=== PATIENT | female | born 1990 | race Caucasian/White ===

== ENCOUNTER 2019-09-29 09:30 | Emergency (ER) | payer SELFPAY ==
[2019-09-29 09:35] VITALS: BMI 26.5
[2019-09-29 09:38] VITALS: BP 114/80; PULSE 80; RESP 16; TEMP 36.8; O2SAT 96
[2019-09-29 09:49] VITALS: PULSE 78
--- NOTE | 2019-09-29 10:01 | W.ED.EXTPRO ---
HPI - Extremity Problem General: Chief complaint: Extremity Injury, Upper Stated complaint: RIGHT SHOULDER PAIN Time Seen by Provider: 09/29/19 09:45 History of Present Illness: HPI Narrative: Patient complains about right shoulder pain after falling 3 reports last night and her right arm was extended and it pulled on that right shoulder. Right shoulder pain with trying to raise arm. MD Complaint: joint pain Onset (ago): hour(s) Pain Consistency: other Location: right and upper extremity Severity scale (1-10): 5 Quality: aching Radiation: none Relieving factors: immobilization Exacerbating factors: other (Trying to raise arm) Associated symptoms: Reports no associated symptoms; Deny chest pain, fever(s) or rash Review of Systems Const: Denies: fever(s), chills or body aches Eyes: Denies: change in vision or blurry vision ENMT: Denies: throat pain or nasal congestion Card: Denies: chest pain or dyspnea on exertion Resp: Denies: dyspnea, productive cough or non-productive cough GI: Denies: abdominal pain, nausea or vomiting Musc: Reports: joint pain (Right shoulder); Denies: extremity pain Skin/Breast: Denies: rash Neuro: Denies: headache(s) Psych: Denies: anxiety or depression Ever/Lymph: Denies: easy bruising Physical Exam Const: COMMON NORMALS: no acute distress, average body habitus and patient oriented x3 HENMT: COMMON NORMALS: normocephalic HEAD & SCALP: normal to inspection and normocephalic FACE & SINUS: normal facial exam Eye: COMMON NORMALS: conjunctivae normal GENERAL EYE: appearance normal, both eyes and all related structures CONJUNCTIVA: Yes conjunctivae normal Neck/C-Spine: COMMON NORMALS: no JVD Chest: COMMONS NORMALS: normal inspection of the chest Resp: COMMON NORMALS: normal respiratory effort and clear to auscultation bilaterally AUSCULTATION: clear to auscultation bilaterally Cardio: COMMON NORMALS: no JVD, regular rate and regular rhythm RATE: regular rate RHYTHM: regular rhythm GI: COMMON NORMALS: Normal to inspection, nondistended, normoactive bowel sounds present Extremity: COMMON NORMALS: normal to inspection RIGHT UPPER EXTREMITY: Yes shoulder joint (Positive Apley scratch test. Negative can test. Resistive arm test positive) Neuro: COMMON NORMALS: patient oriented x3 Course Vital Signs: Vital signs: Vital Signs Temperature 98.2 F 09/29/19 09:38 Pulse Rate 78 09/29/19 09:49 Respiratory Rate 16 09/29/19 09:38 Blood Pressure 114/80 09/29/19 09:38 Pulse Oximetry 96 09/29/19 09:38 MDM - Extremity (Nontraumatic) MDM Narrative: Medical decision making narrative: Patient presented with right shoulder pain does have range of motion when held by me but does have pain with test as outlined in the physical exam. Discussed shoulder sprain versus rotator cuff tear or strain. Do not believe there is any dislocation because she does have range of motion no swelling. Discharge Plan Discharge Patient Disposition: Home Clinical Impression: Sprain of right shoulder Qualifiers: Encounter type: initial encounter Shoulder sprain type: unspecified sprain Qualified Code(s): S43.401A - Unspecified sprain of right shoulder joint, initial encounter Condition: Stable Prescriptions: New diclofenac potassium 50 mg tablet 50 mg PO BID PRN (Reason: pain) Qty: 14 RF: 0 Medrol (Ivan) 4 mg tablets,dose pack See Rx Instructions .ROUTE .COMPLEX Qty: 21 RF: 0 Discontinued ibuprofen 800 mg Tablet 800 mg PO Q6H PRN (Reason: Pain (Scale Score 4-6)) RF: 0 Discharge Orders: Discharge Order (Routine); Ordered 09/29/19 Ordered By: Forrest Godoy Referrals: Jada Cano APN [Primary Care Provider] - Discharge Diet: Usual diet Discharge Activity: Increase activity as tolerated Patient Instructions: Rotator Cuff Injury (ED) Activity Restrictions/Additional Instructions: Follow-up with medical provider as directed. Take medications as prescribed. Return to the ER or your medical provider if condition worsens. Please read and understand discharge instructions. If any questions ask please. Do shoulder exercises that you are instructed on. Ice to the area. Wear sling as needed. Follow-up with [facility] for possible MRI if no significant provement to 3 weeks. Coding Level of Care Code ED Resident Care Manager Rn for Ashley Fwd Exam Comprehensive
[2019-09-29 10:08] VITALS: BP 120/89; PULSE 80; RESP 16; TEMP 36.6; O2SAT 99
== END 2019-09-29 10:11 | disposition home or self-care (01) ==
LOC: ER 10:17
PROVIDERS: Emergency Provider Nurse Practitioner Family; Family Provider Nurse Practitioner Family; PCP Nurse Practitioner Family
DX: S43.401A Unspecified sprain of right shoulder joint, initial encounter (principal); W19.XXXA Unspecified fall, initial encounter
CPT/HCPCS: 12345; 99282

== ENCOUNTER → 2020-04-07 14:13 | Outpatient (BNVA) | payer MEDICAID, SELFPAY | PROVIDERS: Family Provider Nurse Practitioner Family; PCP Nurse Practitioner Family; Visit Provider Nurse Practitioner Women's Health | DX: Z12.4 Encounter for screening for malignant neoplasm of cervix (principal) | CPT/HCPCS: 88175 ==

== ENCOUNTER → 2020-08-15 11:24 | Outpatient (BNVA) | payer MEDICAID, SELFPAY | PROVIDERS: Family Provider Nurse Practitioner Family; PCP Nurse Practitioner Family; Visit Provider Registered Nurse Neonatal Intensive Care | DX: B37.2 Candidiasis of skin and nail (principal); Z20.2 Contact with and (suspected) exposure to infections with a predominantly sexual mode of transmission; R05 Cough | CPT/HCPCS: 81000; 87491; 87591; 87661 ==

== ENCOUNTER 2021-10-21 09:22 | Emergency (ER) | payer BC, MEDICAID, SELFPAY ==
[2021-10-21 10:26] VITALS: BP 159/105; PULSE 86; RESP 16; TEMP 37; O2SAT 98; BMI 26.5
--- NOTE | 2021-10-21 10:26 | W.ED.EAR ---
HPI - Ear Problem General: Chief complaint: Ear Stated complaint: right ear pain Time Seen by Provider: 10/21/21 09:40 Source: patient Mode of arrival: ambulatory Limitations: no limitations History of Present Illness: 31-year-old female presents to the ER today for right ear pain x5 days. Patient reports she went floating early last week and by Friday her right ear started bothering her. Patient was seen at an outpatient clinic and given amoxicillin and a steroid eardrop. Patient reports the pain has continued to worsen and she is not sleeping. Patient reports no sleep for the last 3 nights. She reports she is taking 1000 mg of ibuprofen 4 times a day. Patient rates pain a 10+ out of 10. Patient reports the pain goes down her neck and into her throat. She does report some discharge from the ear also. Review of Systems General: Reports: 10 or more systems reviewed and unremarkable except in HPI and below PFSH ED PFSH: Medical History History of anxiety History of depression No pertinent past medical history neghx: htn,dm,thyroid,dvt/pe PCP: Malu Cano Surgical History No history of previous surgery Family History Mother Hypertension Grandmother Hypertension Maternal Ovarian cancer Maternal-- dx age unknown Paternal--dx age unknown Diabetes Maternal Family/Other Diabetes Maternal Aunt Breast cancer Maternal Great Grandmother--dx age late 30's Denies family history of Colon cancer Heart disease Hypercholesteremia Uterine cancer Thyroid disease Stroke Social History Smoking and tobacco status: current every day smoker Physical Exam Const: COMMON NORMALS: average body habitus, patient oriented x3, no limitations, healthy appearing, alert and well nourished; apparent distress (pt tearful and in moderate distress) HENMT: COMMON NORMALS: normocephalic, atraumatic, hearing grossly normal bilaterally, TM's normal bilaterally, Normal nasal mucous membranes and turbinates present, moist oral mucous membranes, oropharynx normal and dentition normal HEAD & SCALP: normocephalic and atraumatic NOSE: Normal nasal mucous membranes and turbinates present EXTERNAL AUDITORY CANAL: Abnormal EAC present EAC laterality: right Details: erythema, edema, EAC tenderness and otic discharge TYMPANIC MEMBRANE: TM's normal bilaterally Eye: COMMON NORMALS: conjunctivae normal CONJUNCTIVA: Yes conjunctivae normal Lymph: LYMPHATIC: lymphadenopathy (R posterior auricular lymphadenopathy) right postauricular multiple and small Resp: COMMON NORMALS: normal respiratory effort and No retractions EFFORT & INSPECTION: Yes able to speak in complete sentences Cardio: COMMON NORMALS: regular rate and regular rhythm RATE: regular rate RHYTHM: regular rhythm Extremity: COMMON NORMALS: full ROM Neuro: COMMON NORMALS: patient oriented x3 SENSORIUM/ORIENTATION: Yes alert Psych: MOOD & AFFECT: Yes tearful OTHER: Patient is very tearful about the otitis externa Skin: COMMON NORMALS: no rashes or lesions noted and no wounds GENERAL SKIN EXAM: no rashes or lesions noted Course ED course: 31-year-old female presents the ER today for right ear pain x5 days. Patient reports this started after floating on Friday of last week. Patient was seen by doctor and given amoxicillin and also steroid eardrops. Patient has been taking those with the pain is continuing to worsen. She rates a 10+ out of 10. Patient reports she is taking 8000 mg of ibuprofen [id number] with no improvement. Patient reports no sleep for the last 3 days. On exam, patient appears to have otitis externa. Tympanic membrane appears intact and normal. There is white discharge noted also in the canal. There is some mild lymphadenopathy noted on the right side however no throat erythema or tonsillar enlargement noted. Vital Signs: Vital signs: Vital Signs Temperature 98.6 F 10/21/21 10:26 Pulse Rate 86 10/21/21 10:26 Respiratory Rate 16 10/21/21 10:26 Blood Pressure 159/105 10/21/21 10:26 Pulse Oximetry 98 10/21/21 10:26 Oxygen Delivery Me thod 10/21/21 10:26 [facility] - Ear Medical Decision Making 31-year-old female presents the ER today for right ear pain x5 days. Patient reports this started after floating on Friday of last week. Patient was seen by doctor and given amoxicillin and also steroid eardrops. Patient has been taking those with the pain is continuing to worsen. She rates a 10+ out of 10. Patient reports she is taking 8000 mg of ibuprofen [id number] with no improvement. Patient reports no sleep for the last 3 days. On exam, patient appears to have otitis externa. Tympanic membrane appears intact and normal. There is white discharge noted also in the canal. There is some mild lymphadenopathy noted on the right side however no throat erythema or tonsillar enlargement noted. Patient is adamant she needs something for pain. I did discuss different options with patient. We will try a steroid shot in the ER. Patient can alternate Tylenol and Motrin at home however I do not feel anything stronger than that is necessary at this time. We will switch from the steroid eardrops to Ciprodex. Patient should continue the amoxicillin and finish it. If no improvement in 24 to 48 hours follow-up with PCP or ENT. Return to the ER with new or worsening symptoms. Patient verbalized understanding was in agreement with the treatment plan. Critical Care Time Critical Care Time: Critical Care Time: No Discharge Plan Discharge Patient Disposition: Home Clinical Impression: Acute otitis externa of right ear Condition: Stable Prescriptions: New Ciprodex 0.3-0.1 % drops,suspension 4 drp otic (ear) BID 7 Days Qty: 7.5 0RF Discontinued neomycin-polymyxin B-dexameth [Maxitrol] 3.5mg/mL-10,000 unit/mL-0.1 % drops,suspension 2 drp ophthalmic (eye) QID 7 Days Qty: 5 0RF Rx Instructions: Route-Ears to treat Otits Externa No Action amoxicillin 250 mg capsule 250 mg PO BID Discharge Orders: Discharge ED (Routine); Ordered 10/21/21 Ordered By: Patricia Resendez Referrals: Jada Cano APN [Primary Care Provider] - Discharge Diet: Usual diet Discharge Activity: Resume usual activity Patient Instructions: Opioid Safety Activity Restrictions/Additional Instructions: Use Ciprodex drops as prescribed. Continue the amoxicillin as given. Stop the other eardrops. Alternate Tylenol and Motrin for pain. Max dose of 3200 mg of ibuprofen a day and a 3000 mg of Tylenol. Follow-up with PCP or ENT in 48 hours if no improvement. Return to the ER with new or worsening symptoms. Coding Level of Care Code ED Courier Delivery Driver for Ashley Fwkarey Exam Comprehensive
[2021-10-21] MEDS: triamcinolone 40 mg/mL SDV 80 MG IM (11:01)
== END 2021-10-21 11:05 | disposition home or self-care (01) ==
PROVIDERS: Emergency Provider Physician Assistant; PCP Nurse Practitioner Family
DX: H60.501 Unspecified acute noninfective otitis externa, right ear (principal); F17.210 Nicotine dependence, cigarettes, uncomplicated
CPT/HCPCS: 96372; 99284; J3301

== ENCOUNTER → 2022-03-15 15:25 | Outpatient (BNVA) | payer BC, MEDICAID, SELFPAY | PROVIDERS: PCP Nurse Practitioner Family; Visit Provider Nurse Practitioner Women's Health | DX: Z12.4 Encounter for screening for malignant neoplasm of cervix (principal); N89.8 Other specified noninflammatory disorders of vagina | CPT/HCPCS: 87491; 87512; 87591; 87624; 87661; 87798; 87799 ==

== ENCOUNTER → 2022-10-03 15:06 | Outpatient (BNVA) | payer BC, MEDICAID, SELFPAY | PROVIDERS: PCP Nurse Practitioner Family; Visit Provider Nurse Practitioner Women's Health | DX: Z32.00 Encounter for pregnancy test, result unknown (principal); R63.5 Abnormal weight gain | CPT/HCPCS: 84443; 84702 ==

== ENCOUNTER 2023-08-11 17:25 | Emergency (ER) | payer OTHER, MEDICAID, SELFPAY ==
[2023-08-11 17:39] VITALS: BP 129/95; PULSE 85; RESP 18; TEMP 37.3; O2SAT 100
--- NOTE | 2023-08-11 18:26 | W.ED.ANIMALB ---
Documented by User: GARETT Agee 08/11/23 18:33 HPI - Animal Bite General: Chief Complaint: Animal Bite Stated Complaint: Dog bite Time Seen by Provider: 08/11/23 17:46 Source: patient Mode of arrival: ambulatory Limitations: no limitations History of Present Illness: Patient is a 32-year-old female presenting to the emergency department complaining of dog bite onset 4 days ago. Patient is not concerned about the dog bite lesion, however is concerned about the risk of developing rabies. She states that her dogs vaccinations are not up-to-date, though it has been monitored before and after the incident occurred. She also notes that the dog is undergoing treatment at this time due to some enlarged lymph nodes, which also worries the patient that she will contract rabies. She states that 2 different health departments urged her to come into the emergency department to begin rabies vaccination series. She is denying any symptoms at this time including no fever, headache, or shortness of breath. The bite was noted to be on the distal left forearm. Tetanus vaccination up-to-date. complaint: animal bite Onset (ago): day(s) Animal: dog Description of animal: household pet Mechanism: bite Location - Extremities: Left: forearm Pain description: other (No pain) Context: animals fighting Associated symptoms: Reports no associated symptoms; Deny chills, fever(s) or headache(s) Related Data: Patient tetanus UTD: Yes Review of Systems General: Reports: 10 or more systems reviewed and unremarkable except in HPI and below Const: Denies: fever(s), chills or fatigue Eyes: Denies: change in vision ENMT: Denies: throat pain, ear or mastoid pain or nasal discharge Card: Denies: chest pain, palpitations, swelling of feet/ankles or lightheadedness Resp: Denies: dyspnea, productive cough or wheezing GI: Denies: abdominal pain, nausea, vomiting, diarrhea or constipation : Denies: flank pain, difficulty voiding, dysuria or urinary frequency Musc: Denies: neck pain, back pain or joint pain Skin/Breast: Reports: new lesions (Bite to distal left forearm); Denies: rash, skin pain, skin tenderness or skin swelling Neuro: Denies: headache(s), numbness in extremities or weakness in extremities PFSH ED PFSH: Medical History No pertinent past medical history neghx: htn,dm,thyroid,dvt/pe PCP: Malu Cano History of anxiety History of depression Surgical History No history of previous surgery Family History Mother Hypertension Grandmother Hypertension Maternal Ovarian cancer Maternal-- dx age unknown Paternal--dx age unknown Diabetes Maternal Family/Other Diabetes Maternal Aunt Breast cancer Maternal Great Grandmother--dx age late 30's Denies family history of Colon cancer Heart disease Hypercholesteremia Uterine cancer Thyroid disease Stroke Social History Smoking and tobacco/nicotine status: current every day tobacco/nicotine user Physical Exam Const: COMMON NORMALS: no acute distress, patient oriented x3 and no limitations GENERAL APPEARANCE: cooperative, comfortable and well developed ORIENTATION/CONSCIOUSNESS: Yes awake, Yes oriented to person, Yes oriented to place and Yes oriented to time HENMT: COMMON NORMALS: normocephalic, atraumatic and hearing grossly normal bilaterally HEAD & SCALP: normocephalic and atraumatic Eye: COMMON NORMALS: Equal, round and reactive pupils present, EOMs intact bilaterally and conjunctivae normal CONJUNCTIVA: Yes conjunctivae normal PUPIL: Yes Equal, round and reactive pupils present Neck/C-Spine: COMMON NORMALS: full ROM, supple and no JVD Resp: COMMON NORMALS: normal respiratory effort, No retractions, No use of accessory muscles and clear to auscultation bilaterally AUSCULTATION: clear to auscultation bilaterally Cardio: COMMON NORMALS: no JVD, regular rate, regular rhythm, No clicks present (Cardio), No murmurs present (Cardio) and No rub (Cardio) RATE: regular rate RHYTHM: regular rhythm Extremity: COMMON NORMALS: normal to inspection, full ROM and capillary refill normal Neuro: COMMON NORMALS: patient oriented x3, moves all extremities, no focal motor deficits and no sensory deficits noted SENSORIUM/ORIENTATION: Yes oriented to person, Yes oriented to place and Yes oriented to time Psych: COMMON NORMALS: mental status grossly normal and Normal thought process present THOUGHT PROCESS: Normal thought process present Skin: NARRATIVE SKIN EXAM: Very small, very superficial 1 cm abrasion to distal medial left forearm. No active bleeding or drainage. Appears to be well-healing. Course Vital Signs: Vital signs: Vital Signs Temperature 99.2 F 08/11/23 17:39 Pulse Rate 76 08/11/23 19:09 Respiratory Rate 16 08/11/23 19:09 Blood Pressure 129/95 08/11/23 17:39 Pulse Oximetry 97 08/11/23 19:09 MDM - Animal Bite Medical Decision Making Patient presented for request to begin vaccination series due to a dog bite 4 days ago. The wound itself does not appear infected and appears to be almost entirely healed, no need for antibiotics at this time. Her tetanus vaccination was up-to-date. She will be given HyperRAB as well as first dose of RabAvert today in the emergency department, and instructions for follow-up vaccinations are given. Patient asymptomatic and presents with normal vitals. I did tell her to keep monitoring the lesion to make sure it fully heals, of which I expect it would be fully healed in a day or 2. However she will return with any new or worsening. No radiology studies performed this visit Discharge Plan Discharge Patient Disposition: Home Clinical Impression: Need for rabies vaccination, Dog bite Condition: Stable Prescriptions: No Action levonorgestrel-ethinyl estrad [Davido (28)] 0.15-0.03 mg tablet See Rx Instructions .ROUTE .COMPLEX Qty: 84 0RF Dose Instruction: Take 1 tablet by mouth once daily Rx Instructions: Take 1 tablet by mouth once daily Discharge Orders: Discharge ED (Routine); Ordered 08/11/23 Ordered By: Alex Conway Referrals: Jada Cano APN [Primary Care Provider] - Discharge Diet: Usual diet Discharge Activity: Resume usual activity Patient Instructions: Rabies (ED) Activity Restrictions/Additional Instructions: Return for second rabies vaccination dose as instructed. Monitor lesion for any signs of infection and return as needed. Follow-up with primary care. Continue to monitor animal closely. Coding Level of Care Code ED Net Maker for Ashley Fwd Documented by User: Gerber Simmons DO 08/20/23 21:03 HPI - Animal Bite General: Chief Complaint: Animal Bite Stated Complaint: Dog bite Time Seen by Provider: 08/11/23 17:46 PFS ED PFSH: Medical History No pertinent past medical history neghx: htn,dm,thyroid,dvt/pe PCP: [facility] Cano History of anxiety History of depression Surgical History No history of previous surgery Family History Mother Hypertension Grandmother Hypertension Maternal Ovarian cancer Maternal-- dx age unknown Paternal--dx age unknown Diabetes Maternal Family/Other Diabetes Maternal Aunt Breast cancer Maternal Great Grandmother--dx age late 30's Denies family history of Colon cancer Heart disease Hypercholesteremia Uterine cancer Thyroid disease Stroke Social History Smoking and tobacco/nicotine status: current every day tobacco/nicotine user Course Vital Signs: Vital signs: Vital Signs Temperature 99.2 F 08/11/23 17:39 Pulse Rate 76 08/11/23 19:09 Respiratory Rate 16 08/11/23 19:09 Blood Pressure 129/95 08/11/23 17:39 Pulse Oximetry 97 08/11/23 19:09 MDM - Animal Bite Medical Decision Making Patient presented for request to begin vaccination series due to a dog bite 4 days ago. The wound itself does not appear infected and appears to be almost entirely healed, no need for antibiotics at this time. Her tetanus vaccination was up-to-date. She will be given HyperRAB as well as first dose of RabAvert today in the emergency department, and instructions for follow-up vaccinations are given. Patient asymptomatic and presents with normal vitals. I did tell her to keep monitoring the lesion to make sure it fully heals, of which I expect it would be fully healed in a day or 2. However she will return with any new or worsening. Chart reviewed Discharge Plan Discharge Patient Disposition: Home Clinical Impression: Need for rabies vaccination, Dog bite Condition: Stable Prescriptions: No Action levonorgestrel-ethinyl estrad [Davido (28)] 0.15-0.03 mg tablet See Rx Instructions .ROUTE .COMPLEX Qty: 84 0RF Dose Instruction: Take 1 tablet by mouth once daily Rx Instructions: Take 1 tablet by mouth once daily Discharge Orders: Discharge ED (Routine); Ordered 08/11/23 Ordered By: Alex Conway Referrals: Jada Cano APN [Primary Care Provider] - Discharge Diet: Usual diet Discharge Activity: Resume usual activity Patient Instructions: Rabies (ED) Activity Restrictions/Additional Instructions: Return for second rabies vaccination dose as instructed. Monitor lesion for any signs of infection and return as needed. Follow-up with primary care. Continue to monitor animal closely. Coding Level of Care Code ED Net Maker for Ashley Gordon
[2023-08-11] MEDS: rabies vaccine 2.5 unit SDV IM (18:42)
[2023-08-11] MEDS: rabies IG 300 unit/mL SDV 1 mL 2130 UNIT IM (18:52)
[2023-08-11 19:09] VITALS: PULSE 76; RESP 16; O2SAT 97
== END 2023-08-11 19:12 | disposition home or self-care (01) ==
PROVIDERS: Emergency Provider Physician Assistant; PCP Nurse Practitioner Family
DX: S50.872A Other superficial bite of left forearm, initial encounter (principal); W54.0XXA Bitten by dog, initial encounter; Z72.0 Tobacco use; Z20.3 Contact with and (suspected) exposure to rabies; Z29.14 Encounter for prophylactic rabies immune globulin; Z23 Encounter for immunization
CPT/HCPCS: 90375; 90471; 90675; 99283

== ENCOUNTER 2023-08-25 07:45 | Oncology outpatient (recurring) (ONCR) | payer OTHER, MEDICAID, SELFPAY ==
[2023-08-14] MEDS: rabies vaccine 2.5 unit SDV IM (08:10)
[2023-08-14 08:15] VITALS: BP 113/72; PULSE 83; RESP 16; O2SAT 96
[2023-08-18 07:49] VITALS: BP 115/72; PULSE 74; RESP 16; TEMP 36.3; O2SAT 98
[2023-08-18] MEDS: rabies vaccine 2.5 unit SDV IM (08:01)
[2023-08-25 07:57] VITALS: BP 133/86; PULSE 80; RESP 16; O2SAT 98
[2023-08-25] MEDS: rabies vaccine 2.5 unit SDV IM (08:09)
== END 2023-08-31 23:59 | disposition home or self-care (01) ==
PROVIDERS: PCP Nurse Practitioner Family; Visit Provider Physician Assistant
DX: Z53.9 Procedure and treatment not carried out, unspecified reason (principal); Z20.3 Contact with and (suspected) exposure to rabies; Z23 Encounter for immunization; S51.852A Open bite of left forearm, initial encounter; W54.0XXA Bitten by dog, initial encounter
CPT/HCPCS: 90471; 90675